=== PATIENT | male | born 2000 | race Caucasian/White ===

== ENCOUNTER 2022-12-04 01:53 | Emergency (ER) | payer OTHER ==
[2022-12-04] MEDS ORDERED: Silver Sulfadiazine 1% Crm 20 GM Tube TOP ONE (02:16)
== END 2022-12-04 02:42 | disposition home or self-care (01) ==
LOC: LL.ED 01:53
DX: S05.92XA Unspecified injury of left eye and orbit, initial encounter (principal)
CPT/HCPCS: 99283; A9270-GY